=== PATIENT | male | born 1970 | race African-American/Black ===

== ENCOUNTER → 2017-08-19 | Outpatient (CLI) | payer BC ==
[~2017-08-19] MED LIST: BACTRIM,SEPT1 TABLET PO; CEFDINIR300 MG PO; CIPRO500 MG PO; FLEXERIL10 MG PO; NAPROSYN500 MG PO; NAPROXEN500 MG PO; NORCO 5/3251 TABLET PO; ULTRAM50 MG PO; ZESTRIL10 MG PO; ZITHROMAX500 MG PO
== END | disposition home or self-care (01) ==
LOC: CDC 12:34
DX: Z01.810 Encounter for preprocedural cardiovascular examination (principal); L72.3 Sebaceous cyst; R94.31 Abnormal electrocardiogram [ECG] [EKG]
CPT/HCPCS: 93000

== ENCOUNTER 2017-08-20 12:06 | Day surgery (SDC) | payer BC ==
[~2017-08-20] VITALS: Ht 172.7 cm; Wt 74.4 kg
[~2017-08-20 12:06] MED LIST changes: -CIPRO500 MG PO; -ULTRAM50 MG PO
[2017-08-20] MEDS ORDERED: CIPRO500 MG PO (12:26)
[2017-08-20] MEDS ORDERED: ULTRAM50 MG PO (13:51)
[2017-08-20 15:47] VITALS: BP 141/83
[2017-08-20 16:13] VITALS: BP 131/74
== END 2017-08-20 16:23 | disposition home or self-care (01) ==
LOC: SDC 12:06
PROC: 0JBF0ZZ Excision of Left Upper Arm Subcutaneous Tissue and Fascia, Open Approach (ICD-10-PCS; principal; 2017-08-20)
DX: L72.0 Epidermal cyst (principal); I10 Essential (primary) hypertension; F17.200 Nicotine dependence, unspecified, uncomplicated; Z82.49 Family history of ischemic heart disease and other diseases of the circulatory system; Z80.9 Family history of malignant neoplasm, unspecified; Z83.3 Family history of diabetes mellitus; Z88.2 Allergy status to sulfonamides
CPT/HCPCS: 88304; J0690; J1100; J1170; J1200; J2405; J3010